=== PATIENT | female | born 1955 | race Hispanic/Latino ===

== ENCOUNTER 2017-08-03 22:23 | Emergency (ER) | payer MEDICARE ==
[2017-08-03] MEDS ORDERED: Sodium Chloride 0.9% 1,000 ML IV STA (22:36)
[2017-08-03 22:38] VITALS: BP 144/79; PULSE 65; RESP 16; TEMP 97.9; O2SAT 100; BMI 37.9
--- NOTE | 2017-08-03 23:19 | ED PDOC ---
HPI: Abdomen Time Seen by Provider: 08/03/17 22:33 Chief Complaint (Nursing): Abdominal Pain Chief Complaint (Provider): Abdominal Pain History Per: Patient History/Exam Limitations: no limitations Onset/Duration Of Symptoms: Days (x 6days) Current Symptoms Are (Timing): Still Present Additional Complaint(s): 62 y/o female with past medical history of kidney stones present to the ED complaining of acute left lower quadrant pain associated with nausea and vomiting x 6 days. The pain is sharp and stabbing and radiates to the back. Denies any further medical complaints. PMD:Carlos Sanchez MD Past Medical History Reviewed: Historical Data, Nursing Documentation, Vital Signs Vital Signs: Last Vital Signs Temp 97.9 F 08/03/17 22:28 Pulse 65 08/03/17 22:28 Resp 16 08/03/17 22:28 BP 144/79 08/03/17 22:28 Pulse Ox 100 08/04/17 00:37 - Medical History PMH: Depression, GERD Other PMH: Kidney Stones - Surgical History Surgical History: Appendectomy, Cholecystectomy Other surgeries: Hysterectomy - Family History Family History: States: Unknown Family Hx - Social History Current smoker - smoking cessation education provided: Yes (pack and a half a day) Alcohol: None Drugs: Denies - Home Medications Home Medications: Ambulatory Orders Medication Instructions Recorded Alprazolam [Xanax] 1 mg PO PRN PRN 12/13/14 Lamotrigine [Lamotrigine] 200 mg PO DAILY 12/13/14 Loperamide Hydrochloride 4 mg PO DAILY 12/13/14 [Loperamide] Ondansetron ODT [Zofran ODT] 4 mg PO TID #10 odt 12/13/14 Patient Own Med [Patient Own Med] 5 ml PO PRN PRN 12/13/14 Sertraline [Zoloft] 100 mg PO DAILY 12/13/14 traZODone [Desyrel] 150 mg PO QPM 12/13/14 Nitrofurantoin Macrocrystals 100 mg PO BID #14 cap 08/04/17 [Macrobid] Ondansetron ODT [Zofran ODT] 4 mg PO Q6 PRN #16 odt 08/04/17 Tamsulosin [Flomax] 0.4 mg PO DAILY #10 cap 08/04/17 oxyCODONE/Acetaminophen 1/2TAB 1 tab PO Q6 PRN #12 tab 08/04/17 [Percocet 5-325 mg HALF TAB] - Allergies Allergies/Adverse Reactions: Allergies Allergy/AdvReac Type Severity Reaction Status Date / Time codeine Allergy DIZZINESS Verified 08/03/17 22:27 Penicillins Allergy RASH Verified 08/03/17 22:26 Sulfa (Sulfonamide Allergy ITCHING Verified 08/03/17 22:27 Antibiotics) Review of Systems ROS Statement: Except As Marked, All Systems Reviewed And Found Negative (As per HPI, otherwise negative) Gastrointestinal: Positive for: Nausea, Vomiting, Abdominal Pain Physical Exam - Reviewed Nursing Documentation Reviewed: Yes Vital Signs Reviewed: Yes - Physical Exam Appears: Positive for: Uncomfortable Head Exam: Positive for: ATRAUMATIC, NORMAL INSPECTION, NORMOCEPHALIC Skin: Positive for: Normal Color, Warm, Dry Eye Exam: Positive for: Normal appearance, EOMI, PERRL ENT: Positive for: Normal ENT Inspection Neck: Positive for: Normal, Painless ROM, Supple Cardiovascular/Chest: Positive for: Regular Rate, Rhythm. Negative for: Murmur Respiratory: Positive for: Normal Breath Sounds. Negative for: Accessory Muscle Use, Respiratory Distress Gastrointestinal/Abdominal: Positive for: Normal Exam, Bowel Sounds, Soft. Negative for: Tenderness Back: Positive for: Normal Inspection Extremity: Positive for: Normal ROM Neurologic/Psych: Positive for: Alert, Oriented (x3) - Laboratory Results Result Diagrams: 08/03/17 23:10 08/03/17 23:10 - ECG O2 Sat by Pulse Oximetry: 100 (RA) Pulse Ox Interpretation: Normal Medical Decision Making Medical Decision Making: Time: 22:36 Initial Impression: 62y/o female with left lower quadrant pain in setting of known kidney stones Plan: Abdomen & pelvis w/o PO or IV contrast CMP Lipase Urine dipstick CBC w/ diff Toradol 30mg IV Sodium chloride 1L IV Ondansetron 4mg IV Heplock insertion Urinalysis Reevaluation Time: 00:00 Abdomen/Pelvis CT FINDINGS: Lower thorax: No acute findings. ABDOMEN: Liver: Unremarkable. Gallbladder and bile ducts: Cholecystectomy. No ductal dilation. Pancreas: Unremarkable. No ductal dilation. Spleen: Unremarkable. No splenomegaly. Adrenals: Unremarkable. No mass. Kidneys and ureters: Right kidney is unremarkable. Mild to moderate left hydronephrosis. Hypodensity measuring 2 CM in a anterior, mid pole renal cortex, most likely a cyst. 1 mm calculus at left ureterovesical junction. Coronal image #84. Stomach and bowel: Unremarkable. No obstruction. Appendix: No findings to suggest acute appendicitis. PELVIS: Bladder: Unremarkable. No stones. Reproductive: Hysterectomy. ABDOMEN and PELVIS: Intraperitoneal space: Unremarkable. No free air. No significant fluid collection. Bones/joints: Diffuse spinal degenerative changes. No acute fracture. No dislocation. Soft tissues: Unremarkable. Vasculature: Atherosclerotic vascular disease. No abdominal aortic aneurysm. Lymph nodes: Unremarkable. No enlarged lymph nodes. IMPRESSION: 1. 1 mm left UVJ calculus with [id number] left hydronephrosis. 2. Remainder of findings as above. Time: 01:15 Upon provider reevaluation patient is feeling better, is medically stable, and requires no further treatment in the ED at this time. Patient will be discharged home with Rx for Macrobid 100ml PO, Zofran 4mg PO, Percocet 5-325mg half tab, Flomax 0.4mg PO. No clinically significant abnormalities were observed with the exception of urinalysis which is indicative of possible UTI. Urologist referral was provided for further evaluation. Clinical Impression: UTI, Ureteral calculus Scribe Attestation: Documented by Avtar Elliott acting as a scribe for Fredy Lamar MD. Scribe Attestation: All medical record entries made by the Scribe were at my direction and personally dictated by me. I have reviewed the chart and agree that the record accurately reflects my personal performance of the history, physical exam, medical decision making, and the department course for this patient. I have also personally directed, reviewed, and agree with the discharge instructions and disposition. Disposition - Clinical Impression Clinical Impression: Ureteral calculus - Disposition Referrals: Aracelis Jones MD [Medical Doctor] - Disposition: Routine/Home Disposition Time: 01:15 Condition: STABLE Prescriptions: Nitrofurantoin Macrocrystals [Macrobid] 100 mg PO BID #14 cap Ondansetron ODT [Zofran ODT] 4 mg PO Q6 PRN #16 odt PRN Reason: Nausea/Vomiting oxyCODONE/Acetaminophen 1/2TAB [Percocet 5-325 mg HALF TAB] 1 tab PO Q6 PRN #12 tab PRN Reason: flank/abd pain Tamsulosin [Flomax] 0.4 mg PO DAILY #10 cap Instructions: Ureteral Stones (ED) Forms: [employer] (Spanish)
--- NOTE | 2017-08-04 | CT ---
EXAM: CT Abdomen and Pelvis Without Intravenous Contrast CLINICAL HISTORY: 62 years old, female; Pain; Abdominal pain; Flank; Left; Prior surgery; Surgery date: 6+ months; Surgery type: Appendectomy. Cholecystectomy. Hysterectomy; Additional info: Renal colic TECHNIQUE: Axial computed tomography images of the abdomen and pelvis without intravenous contrast. All CT scans at this facility use one or more dose reduction techniques, viz.: automated exposure control; ma/kV adjustment per patient size (including targeted exams where dose is matched to indication; i.e. head); or iterative reconstruction technique. Coronal and sagittal reformatted images were created and reviewed. COMPARISON: CT ABD AND PELV W/CONTRAST 2013-06-17 20:00 FINDINGS: Lower thorax: No acute findings. ABDOMEN: Liver: Unremarkable. Gallbladder and bile ducts: Cholecystectomy. No ductal dilation. Pancreas: Unremarkable. No ductal dilation. Spleen: Unremarkable. No splenomegaly. Adrenals: Unremarkable. No mass. Kidneys and ureters: Right kidney is unremarkable. Mild to moderate left hydronephrosis. Hypodensity measuring 2 CM in a anterior, mid pole renal cortex, most likely a cyst. 1 mm calculus at left ureterovesical junction. Coronal image #84. Stomach and bowel: Unremarkable. No obstruction. Appendix: No findings to suggest acute appendicitis. PELVIS: Bladder: Unremarkable. No stones. Reproductive: Hysterectomy. ABDOMEN and PELVIS: Intraperitoneal space: Unremarkable. No free air. No significant fluid collection. Bones/joints: Diffuse spinal degenerative changes. No acute fracture. No dislocation. Soft tissues: Unremarkable. Vasculature: Atherosclerotic vascular disease. No abdominal aortic aneurysm. Lymph nodes: Unremarkable. No enlarged lymph nodes. IMPRESSION: 1. 1 mm left UVJ calculus with [id number] left hydronephrosis. 2. Remainder of findings as above.
[2017-08-04 00:46] LABS: BASO # 0.1 K/uL (0.0-0.2); BASO % 1.4 % (0.0-2.0); EOS % 0.2 % (0.0-4.0); HEMATOCRIT 44.1 % (34.0-47.0); LYMPH # 1.7 K/uL (1.0-4.3); LYMPH % 18.6 % (20.0-40.0); MEAN CORPUSCULAR HEMOGLOBIN 30.7 pg (27.0-31.0); MEAN CORPUSCULAR HGB CONC 32.7 g/dL (33.0-37.0); MEAN PLATELET VOLUME 9.6 fl (7.2-11.7); MONO # 0.3 K/uL (0.0-0.8); MONO % 3.8 % (0.0-10.0); RED CELL DISTRIBUTION WIDTH 13.4 % (11.5-14.5); WHITE BLOOD COUNT 9.2 K/uL (4.8-10.8)
[2017-08-04 00:50] LABS: RBC URINE 4396 /hpf (0-3); URINE BACTERIA OCC (<OCC); URINE BILIRUBIN NEGATIVE (NEGATIVE); URINE BLOOD LARGE (NEGATIVE); URINE COLOR AMBER (YELLOW); URINE GLUCOSE (UA) NEG (Normal); URINE KETONE NEGATIVE (NEGATIVE); URINE LEUKOCYTE ESTERASE TRACE Leu/uL (Negative); URINE PROTEIN 100 mg/dL (NEGATIVE); URINE UROBILINOGEN 0.2-1.0 mg/dL (0.2-1.0); WBC CLUMPS MANY /hpf; WBC URINE 249 /hpf (0-5)
[2017-08-04 00:58] LABS: ALB/GLOB RATIO 1.2 (1.0-2.1); ALKALINE PHOSPHATASE 84 U/L (38-126); ALT/SGPT 33 U/L (9-52); AST/SGOT 21 U/L (14-36); BILIRUBIN,TOTAL 0.5 mg/dl (0.2-1.3); BLOOD UREA NITROGEN 15 mg/dl (7-17); CALCIUM 9.1 mg/dL (8.4-10.2); CARBON DIOXIDE 28 mmol/L (22-30); CHLORIDE 108 mmol/L (98-107); GFR AFRICAN-AMERICAN > 60; GLUCOSE,RANDOM 130 mg/dL (65-105); LIPASE 45 U/L (23-300); POTASSIUM 3.9 MMOL/L (3.6-5.0); SODIUM 145 mmol/l (132-148); TOTAL PROTEIN 7.7 G/DL (6.3-8.2)
== END 2017-08-04 01:20 | disposition home or self-care (01) ==
LOC: H.ER 22:23
DX: N20.1 Calculus of ureter (principal); F32.9 Major depressive disorder, single episode, unspecified; K21.9 Gastro-esophageal reflux disease without esophagitis; Z88.0 Allergy status to penicillin; Z90.49 Acquired absence of other specified parts of digestive tract; Z90.710 Acquired absence of both cervix and uterus
CPT/HCPCS: 74176; 80053; 81003; 83690; 85025; 96360; 96374; 99283; J1885; J2270; J2405; J7040

== ENCOUNTER 2018-09-28 15:45 | Emergency (ER) | payer MEDICARE ==
[2018-09-28 15:46] VITALS: BMI 37.9
[2018-09-28 15:52] VITALS: BP 139/83; PULSE 76; RESP 18; TEMP 98; O2SAT 98
[2018-09-28] MEDS ORDERED: Tdap Vaccine 0.5 ml Vial (10-64 yrs) IM ONE ×2 (15:52→16:27)
[2018-09-28] MEDS ORDERED: Lidocaine 2% w Epi 1:100,000 Inj IJ ONE ×2 (16:03→16:09)
--- NOTE | 2018-09-28 16:11 | ED PDOC ---
HPI: Trauma/Fall - HPI Time Seen by Provider: 09/28/18 15:58 Chief Complaint (Nursing): Trauma Chief Complaint (Provider): Trauma History Per: Patient History/Exam Limitations: no limitations Onset/Duration Of Symptoms: Days Additional Complaint(s): 63 y/o female presents to the ED for evaluation of a head injury s/p fall, onset prior to arrival. Patient tripped over a curb and fell sustaining a laceration to the front of her head. Unclear loss of consciousness observed by onlookers. Patient denies any loss of consciousness and any other injuries. Patient is not currently on any blood thinners. PMD: Killian Hodges - Fall Fall:Prior To Injury: Tripped Past Medical History Reviewed: Historical Data, Nursing Documentation, Vital Signs Vital Signs: Last Vital Signs Temp 98 F 09/28/18 15:50 Pulse 76 09/28/18 15:50 Resp 18 09/28/18 15:50 BP 139/83 09/28/18 15:50 Pulse Ox 98 09/28/18 15:50 - Medical History PMH: Depression, GERD, Kidney Stones, Chronic Kidney Disease - Surgical History Surgical History: Appendectomy, Cholecystectomy - Family History Family History: States: Unknown Family Hx - Home Medications Home Medications: Ambulatory Orders Medication Instructions Recorded Alprazolam [Xanax] 1 mg PO PRN PRN 12/13/14 Lamotrigine 200 mg PO DAILY 12/13/14 Loperamide Hydrochloride 4 mg PO DAILY 12/13/14 [Loperamide] Ondansetron ODT [Zofran ODT] 4 mg PO TID #10 odt 12/13/14 Patient Own Med 5 ml PO PRN PRN 12/13/14 RX: traZODone [Desyrel] 150 mg PO QPM 12/13/14 Sertraline [Zoloft] 100 mg PO DAILY 12/13/14 Nitrofurantoin Macrocrystals 100 mg PO BID #14 cap 08/04/17 [Macrobid] Ondansetron ODT [Zofran ODT] 4 mg PO Q6 PRN #16 odt 08/04/17 Tamsulosin [Flomax] 0.4 mg PO DAILY #10 cap 08/04/17 oxyCODONE/Acetaminophen 1/2TAB 1 tab PO Q6 PRN #12 tab 08/04/17 [Percocet 5-325 mg HALF TAB] - Allergies Allergies/Adverse Reactions: Allergies Allergy/AdvReac Type Severity Reaction Status Date / Time codeine Allergy DIZZINESS Verified 08/03/17 22:27 Penicillins Allergy RASH Verified 08/03/17 22:26 Sulfa (Sulfonamide Allergy ITCHING Verified 08/03/17 22:27 Antibiotics) Review of Systems ROS Statement: Except As Marked, All Systems Reviewed And Found Negative Musculoskeletal: Positive for: Other (Head injury s/p fall) Physical Exam - Reviewed Nursing Documentation Reviewed: Yes Vital Signs Reviewed: Yes - Physical Exam Appears: Positive for: No Acute Distress Head Exam: Negative for: NORMAL INSPECTION (1 cm laceration next to a 4 mm laceration by the left frontal region of her forehead. Tenderness to palpation of the left side of face) Neck: Positive for: Normal (Non-tender neck) - ECG O2 Sat by Pulse Oximetry: 98 (RA) Pulse Ox Interpretation: Normal Medical Decision Making Medical Decision Making: Time: 1603 Plan: -- CT Head w/o Contrast -- CT Orbits/Facial w/o Contrast -- Adacel 0.5 ml IM -- Motrin 600 mg PO -- Tylenol 975 mg PO -- Lidocaine/Epinephrine 1 ml IJ Time: 1704 CT HEAD FINDINGS: HEMORRHAGE: No intracranial hemorrhage. BRAIN: No mass effect or edema. No atrophy or chronic microvascular ischemic changes. VENTRICLES: Unremarkable. No hydrocephalus. CALVARIUM: Unremarkable. PARANASAL SINUSES: Unremarkable as visualized. No significant inflammatory changes. MASTOID AIR CELLS: Unremarkable as visualized. No inflammatory changes. OTHER FINDINGS: Mild left frontal scalp laceration. IMPRESSION: Left frontal scalp laceration. No calvarial fracture. No acute intracranial pathology. Time: 1717 CT MAXILLOFACIAL FINDINGS: RIGHT ORBIT: RIGHT BONY ORBIT: Normal. RIGHT INTRAORBITAL STRUCTURES: Globe: Normal. Extraocular muscles: Normal. Post septal space: Normal. Optic Nerve: Normal. Lacrimal Apparatus: Normal. RIGHT PRESEPTAL SOFT TISSUES: Normal. LEFT ORBIT: LEFT BONY ORBIT: Normal. LEFT INTRAORBITAL STRUCTURES: Globe: Normal. Extraocular muscles: Normal. Post septal space: Normal Optic Nerve: Normal. . Lacrimal Apparatus: Normal. LEFT PRESEPTAL SOFT TISSUES: Normal. OTHER: Left frontal scalp laceration. IMPRESSION: Left frontal scalp laceration. No facial bone fracture. Scribe Attestation: Documented by Radha Arenas, acting as a scribe Dieter Elliott PA-C. Provider Scribe Attestation: All medical record entries made by the Scribe were at my direction and personally dictated by me. I have reviewed the chart and agree that the record accurately reflects my personal performance of the history, physical exam, medical decision making, and the department course for this patient. I have also personally directed, reviewed, and agree with the discharge instructions and disposition. Disposition - Clinical Impression Clinical Impression: Head injury, Facial laceration - Patient ED Disposition Is Patient to be Admitted: No - Disposition Disposition: Routine/Home Disposition Time: 17:30 Condition: FAIR Additional Instructions: RETURN IN 5 DAYS FOR REMOVAL OF SUTURES Instructions: Laceration Repair, Closed Head Injury (DC) Procedure: Wound Repair - Time Performed Time Performed: 18:41 - Time Out Time Out: Site verified - Consent Obtained Consent obtained: Verbal - Performed by Performed by: Mid-level Provider - Indications Indication(s):: Laceration - Location Location:: Left, Face Shape:: Stellate Dimensions Length cm: 1.25cm Depth:: Epidermis - Anesthetic Technique Anesthetic Technique: Regional block Local/Regional Anesthetic:: Lidocaine 2% w/epi - Irrigated Irrigated with ml of normal saline: 150ml - Complexity Complexity:: Simple (one layer) - Wound repair method Sutures:: # (four), Size (6-0), Type (nylon), Technique (interrupted)
--- NOTE | 2018-09-28 17:08 | CT ---
Date of service: 09/28/2018 PROCEDURE: CT HEAD WITHOUT CONTRAST. HISTORY: HEAD INJURY COMPARISON: None available. TECHNIQUE: Axial computed tomography images were obtained through the head/brain without intravenous contrast. Radiation dose: Total exam DLP = 792.57 mGy-cm. This CT exam was performed using one or more of the following dose reduction techniques: Automated exposure control, adjustment of the mA and/or kV according to patient size, and/or use of iterative reconstruction technique. FINDINGS: HEMORRHAGE: No intracranial hemorrhage. BRAIN: No mass effect or edema. No atrophy or chronic microvascular ischemic changes. VENTRICLES: Unremarkable. No hydrocephalus. CALVARIUM: Unremarkable. PARANASAL SINUSES: Unremarkable as visualized. No significant inflammatory changes. MASTOID AIR CELLS: Unremarkable as visualized. No inflammatory changes. OTHER FINDINGS: Mild left frontal scalp laceration. IMPRESSION: Left frontal scalp laceration. No calvarial fracture. No acute intracranial pathology.
--- NOTE | 2018-09-28 17:21 | CT ---
Date of service: 09/28/2018 PROCEDURE: CT ORBITS WITHOUT CONTRAST. HISTORY: R/O FX COMPARISON: None available. TECHNIQUE: Axial CT images of the orbits were obtained. Coronal and sagittal reformats were generated. Radiation dose: Total exam DLP = 836.12 mGy-cm. This CT exam was performed using one or more of the following dose reduction techniques: Automated exposure control, adjustment of the mA and/or kV according to patient size, and/or use of iterative reconstruction technique. FINDINGS: RIGHT ORBIT: RIGHT BONY ORBIT: Normal. RIGHT INTRAORBITAL STRUCTURES: Globe: Normal. Extraocular muscles: Normal. Post septal space: Normal. Optic Nerve: Normal. Lacrimal Apparatus: Normal. RIGHT PRESEPTAL SOFT TISSUES: Normal. LEFT ORBIT: LEFT BONY ORBIT: Normal. LEFT INTRAORBITAL STRUCTURES: Globe: Normal. Extraocular muscles: Normal. Post septal space: Normal Optic Nerve: Normal. . Lacrimal Apparatus: Normal. LEFT PRESEPTAL SOFT TISSUES: Normal. OTHER: Left frontal scalp laceration. IMPRESSION: Left frontal scalp laceration. No facial bone fracture.
== END 2018-09-28 17:32 | disposition home or self-care (01) ==
LOC: H.ER 15:45
DX: S01.81XA Laceration without foreign body of other part of head, initial encounter (principal); W01.0XXA Fall on same level from slipping, tripping and stumbling without subsequent striking against object, initial encounter; S09.90XA Unspecified injury of head, initial encounter; W19.XXXA Unspecified fall, initial encounter; Y92.89 Other specified places as the place of occurrence of the external cause; F32.9 Major depressive disorder, single episode, unspecified; Z88.0 Allergy status to penicillin; Z88.2 Allergy status to sulfonamides

== ENCOUNTER 2018-10-03 14:34 | Emergency (ER) | payer MEDICARE ==
[2018-10-03 14:34] VITALS: BMI 37.9
[2018-10-03 14:41] VITALS: BP 97/69; PULSE 63; RESP 18; TEMP 97.1; O2SAT 99
--- NOTE | 2018-10-03 15:30 | ED PDOC ---
HPI: Wound Care - HPI Time Seen by Provider: 10/03/18 15:23 Chief Complaint (Nursing): Abnormal Skin Integrity Chief Complaint (Provider): Suture Removal History Per: Patient Exam Limitations: no limitations Onset/Duration Of Symptoms: Days (x5) Current Symptoms Are (Timing): Better Additional Complaint(s): 63 year old female presents to the ED for suture removal. Patient was seen here on 09/28/2018 s/p a slip and fall where she had four 6:0 nylon sutures placed to her left forehead. Denies any complications, fever, and chills. PMD: Carlos Sanchez Past Medical History Reviewed: Historical Data, Nursing Documentation, Vital Signs Vital Signs: Last Vital Signs Temp 97.1 F L 10/03/18 14:38 Pulse 63 10/03/18 14:38 Resp 18 10/03/18 14:38 BP 97/69 L 10/03/18 14:38 Pulse Ox 99 10/03/18 14:38 - Medical History PMH: Depression, GERD, Kidney Stones, Chronic Kidney Disease - Surgical History Surgical History: Appendectomy, Cholecystectomy - Family History Family History: States: Unknown Family Hx - Home Medications Home Medications: Ambulatory Orders Medication Instructions Recorded Alprazolam [Xanax] 1 mg PO PRN PRN 12/13/14 Lamotrigine 200 mg PO DAILY 12/13/14 Loperamide Hydrochloride 4 mg PO DAILY 12/13/14 [Loperamide] Ondansetron ODT [Zofran ODT] 4 mg PO TID #10 odt 12/13/14 Patient Own Med 5 ml PO PRN PRN 12/13/14 Sertraline [Zoloft] 100 mg PO DAILY 12/13/14 traZODone [Desyrel] 150 mg PO QPM 12/13/14 Nitrofurantoin Macrocrystals 100 mg PO BID #14 cap 08/04/17 [Macrobid] Ondansetron ODT [Zofran ODT] 4 mg PO Q6 PRN #16 odt 08/04/17 Tamsulosin [Flomax] 0.4 mg PO DAILY #10 cap 08/04/17 oxyCODONE/Acetaminophen 1/2TAB 1 tab PO Q6 PRN #12 tab 08/04/17 [Percocet 5-325 mg HALF TAB] - Allergies Allergies/Adverse Reactions: Allergies Allergy/AdvReac Type Severity Reaction Status Date / Time codeine Allergy DIZZINESS Verified 08/03/17 22:27 Penicillins Allergy RASH Verified 08/03/17 22:26 Sulfa (Sulfonamide Allergy ITCHING Verified 08/03/17 22:27 Antibiotics) Review of Systems ROS Statement: Except As Marked, All Systems Reviewed And Found Negative Constitutional: Negative for: Fever, Chills Skin: Positive for: Other ([address] above left eye to a well healing wound) Physical Exam - Reviewed Nursing Documentation Reviewed: Yes Vital Signs Reviewed: Yes - Physical Exam Appears: Positive for: No Acute Distress Head Exam: Positive for: NORMAL INSPECTION (well healeing wound with 4 6:0 nylon sutures just above left eye, (-) erythema, (-) signs of infection, (-) drainage, (-) warmth) Skin: Positive for: Normal Color, Warm Cardiovascular/Chest: Positive for: Regular Rate, Rhythm Respiratory: Positive for: Normal Breath Sounds. Negative for: Respiratory Distress Neurologic/Psych: Negative for: Motor/Sensory Deficits - ECG O2 Sat by Pulse Oximetry: 99 (RA) Pulse Ox Interpretation: Normal Medical Decision Making Medical Decision Making: Time: 1529 Initial Impression: suture removal Initial Plan: --Sutures removed without difficulty. Return parameters discussed and patient is to be discharged. Scribe Attestation: Documented by Iqra Spence, acting as a scribe for Orlin Samuel PA-C. Provider Scribe Attestation: All medical record entries made by the Scribe were at my direction and personally dictated by me. I have reviewed the chart and agree that the record accurately reflects my personal performance of the history, physical exam, medical decision making, and the department course for this patient. I have also personally directed, reviewed, and agree with the discharge instructions and disposition. Disposition - Clinical Impression Clinical Impression: Encounter for removal of sutures - Patient ED Disposition Is Patient to be Admitted: No - Disposition Disposition: Routine/Home Disposition Time: 15:38 Condition: STABLE Instructions: Stitches Removal Forms: [employer] (Urdu)
== END 2018-10-03 15:44 | disposition home or self-care (01) ==
LOC: H.ER 14:34
DX: Z48.02 Encounter for removal of sutures (principal)

== ENCOUNTER 2018-10-14 16:00 | Observation (INO) | payer MEDICARE ==
[2018-10-14 16:00] VITALS: BMI 37.9
[2018-10-14 17:58] LABS: BASO % 0.7 % (0.0-2.0); EOS % 0.3 % (0.0-4.0); HEMOGLOBIN 13.6 g/dL (12.0-16.0); LYMPH # 2.2 K/uL (1.0-4.3); LYMPH % 32.7 % (20.0-40.0); MEAN CELL VOLUME 91.6 fl (81.0-99.0); MEAN CORPUSCULAR HEMOGLOBIN 30.2 pg (27.0-31.0); MEAN PLATELET VOLUME 8.4 fl (7.2-11.7); MONO # 0.5 K/uL (0.0-0.8); MONO % 7.2 % (0.0-10.0); NEUT % 59.1 % (50.0-75.0); RBC 4.5 Mil/uL (3.80-5.20); WHITE BLOOD COUNT 6.7 K/uL (4.8-10.8)
[2018-10-14 18:04] LABS: INR 1.1; PROTHROMBIN TIME 12.3 Seconds (9.8-13.1)
[2018-10-14 18:07] LABS: PARTIAL THROMBOPLASTIN TIME 34.3 Seconds (25.6-37.1)
[2018-10-14 18:08] LABS: ALB/GLOB RATIO 1.1 (1.0-2.1); ALBUMIN 3.9 g/dL (3.5-5.0); ALT/SGPT 19 U/L (9-52); AST/SGOT 21 U/L (14-36); BLOOD UREA NITROGEN 13 mg/dl (7-17); CALCIUM 9.2 mg/dL (8.4-10.2); GFR NON-AFRICAN AMERICAN > 60
--- NOTE | 2018-10-14 19:17 | ED PDOC ---
Syncope/Near Syncope/Dizziness Time Seen by Provider: 10/14/18 16:14 Chief Complaint (Nursing): Syncope Chief Complaint (Provider): Syncope History Per: Patient History/Exam Limitations: no limitations Onset/Duration Of Symptoms: Days Current Symptoms Are (Timing): Still Present Additional Complaint(s): 63 y/o female with a PMHx of Anxiety and Depression presents to the ED for evaluation of syncope since 6 PM yesterday. Patient states she had a moment where she feeling lightheaded and waking up lying on the floor. Patient notes of feeling pain to her right knee at that time. Patient reports that just prior to arrival, she was unable to walk at all thus prompting today's visit. Patient reports of having a similar fall almost two weeks ago on 10/04/2018 where she felt lightheaded and woke up on the ground. At that time, patient reports of having a head injury and laceration and came here for further evaluation. Patient currently denies chest pain, shortness of breath, headache, focal weakness and difficulty with speech. PMD: Carlos Sanchez Past Medical History Reviewed: Historical Data, Nursing Documentation, Vital Signs Vital Signs: Last Vital Signs Temp 97.9 F 10/14/18 16:02 Pulse 88 10/14/18 16:02 Resp 22 10/14/18 16:02 BP 90/62 L 10/14/18 16:02 Pulse Ox 99 10/14/18 16:02 - Medical History PMH: Depression, GERD, Kidney Stones, Chronic Kidney Disease - Surgical History Surgical History: Appendectomy, Cholecystectomy Other surgeries: hysterectomy - Family History Family History: States: Stroke, Hypertension - Social History Current smoker - smoking cessation education provided: Yes - Home Medications Home Medications: Ambulatory Orders Medication Instructions Recorded Alprazolam [Xanax] 1 mg PO PRN PRN 12/13/14 Lamotrigine 200 mg PO DAILY 12/13/14 Loperamide Hydrochloride 4 mg PO DAILY 12/13/14 [Loperamide] Ondansetron ODT [Zofran ODT] 4 mg PO TID #10 odt 12/13/14 Patient Own Med 5 ml PO PRN PRN 12/13/14 Sertraline [Zoloft] 100 mg PO DAILY 12/13/14 traZODone [Desyrel] 150 mg PO QPM 12/13/14 Nitrofurantoin Macrocrystals 100 mg PO BID #14 cap 08/04/17 [Macrobid] Ondansetron ODT [Zofran ODT] 4 mg PO Q6 PRN #16 odt 08/04/17 Tamsulosin [Flomax] 0.4 mg PO DAILY #10 cap 08/04/17 oxyCODONE/Acetaminophen 1/2TAB 1 tab PO Q6 PRN #12 tab 08/04/17 [Percocet 5-325 mg HALF TAB] - Allergies Allergies/Adverse Reactions: Allergies Allergy/AdvReac Type Severity Reaction Status Date / Time codeine Allergy DIZZINESS Verified 08/03/17 22:27 Penicillins Allergy RASH Verified 08/03/17 22:26 Sulfa (Sulfonamide Allergy ITCHING Verified 08/03/17 22:27 Antibiotics) Review of Systems ROS Statement: Except As Marked, All Systems Reviewed And Found Negative (as per HPI) Musculoskeletal: Positive for: Leg Pain (RIGHT KNEE PAIN) Neurological: Positive for: Other (SYNCOPE, LIGHTHEADEDNESS AT ONSET) Physical Exam - Reviewed Nursing Documentation Reviewed: Yes Vital Signs Reviewed: Yes - Physical Exam Appears: Positive for: In Acute Distress (mild, painful) Head Exam: Positive for: ATRAUMATIC, NORMOCEPHALIC Skin: Positive for: Warm, Dry Eye Exam: Positive for: EOMI, PERRL ENT: Negative for: Pharyngeal Erythema, Tonsillar Exudate Neck: Positive for: Painless ROM, Supple Cardiovascular/Chest: Positive for: Regular Rate, Rhythm. Negative for: Murmur Respiratory: Positive for: Normal Breath Sounds. Negative for: Respiratory Distress Pulses-Dorsalis Pedis (L): 2+ Pulses-Dorsalis Pedis (R): 2+ Gastrointestinal/Abdominal: Positive for: Soft. Negative for: Tenderness Back: Positive for: Normal Inspection. Negative for: Decreased ROM Extremity: Positive for: Tenderness (tenderness to palpation of the anterior right knee). Negative for: Normal ROM (Limited ROM secondary to pain), Deformity (gross), Other (edema) Lymphatic: Negative for: Adenopathy Neurologic/Psych: Positive for: Alert, Oriented (x3), Other (normal speech). Negative for: Motor/Sensory Deficits - Laboratory Results Result Diagrams: 10/14/18 17:45 10/14/18 17:45 Lab Results: PT 12.3 Seconds (9.8-13.1) 10/14/18 17:45 INR 1.1 10/14/18 17:45 APTT 34.3 Seconds (25.6-37.1) 10/14/18 17:45 Troponin I < 0.0120 ng/mL (0.00-0.120) 10/14/18 17:45 Total Bilirubin 0.6 mg/dl (0.2-1.3) 10/14/18 17:45 AST 21 U/L (14-36) 10/14/18 17:45 ALT 19 U/L (9-52) 10/14/18 17:45 Alkaline Phosphatase 85 U/L (38-126) 10/14/18 17:45 Total Protein 7.4 G/DL (6.3-8.2) 10/14/18 17:45 Albumin 3.9 g/dL (3.5-5.0) 10/14/18 17:45 Globulin 3.5 gm/dL (2.2-3.9) 10/14/18 17:45 Albumin/Globulin Ratio 1.1 (1.0-2.1) 10/14/18 17:45 - ECG ECG Rhythm: Positive for: Normal ST Segment, Sinus Rhythm Interpretation Of Abn EKG: diffusely flattened T-Waves (compared to previous EKG in November 2015. ST Morphology Unchanged) Rate: 69 O2 Sat by Pulse Oximetry: 99 (RA) Pulse Ox Interpretation: Normal Medical Decision Making Medical Decision Making: Time: 1624 Impression: Syncope and right knee injury Plan: -- Patient needs to be hospitalized for unexplained recurrent syncopal episode -- Type and Screen -- EKG -- Alcohol Serum -- CMP -- Urine Drug Screen -- Magnesium -- Phosphorus -- Troponin I -- ED Urine Dipstick -- CBC with Differentials -- PTT -- Prothrombin Time -- CXR -- Knee 3 Views LT XR -- Glucose, POC -- Toradol 30 mg IVP -- Dobie Worker -- IV Insertion -- Femur Right XR -- Knee Right 2 Views XR Labs unremarkable DW Dr Munson Hospitalist admitting for PMD Dr Sanchez. Scribe Attestation: Documented by Radha Arenas, acting as a scribe for Whitney Sanabria MD. Provider Scribe Attestation: All medical record entries made by the Scribe were at my direction and personally dictated by me. I have reviewed the chart and agree that the record accurately reflects my personal performance of the history, physical exam, medical decision making, and the department course for this patient. I have also personally directed, reviewed, and agree with the discharge instructions and disposition. Disposition - Clinical Impression Clinical Impression: Syncope, Knee injury - Disposition Disposition Time: 18:00 Condition: FAIR - Pt Status Changed To: Hospital Disposition Of: Inpatient - Admit Certification Admit to Inpatient:: After my assessment, the patient will require hospitalization for at least two midnights. This is because of the severity of symptoms shown, intensity of services needed, and/or the medical risk in this pa tient being treated as an outpatient. - POA Present On Arrival: Falls Or Trauma
--- NOTE | 2018-10-14 19:22 | CP.PCM.HP ---
<Zayda Salomon - Last Filed: 10/15/18 05:19> History of Present Illness - History of Present Illness History of Present Illness: Pt is a 63 y/o female with hx of Anxiety, Depression, and Chronic smoker, presents to ED with complaints of left knee pain which during a fall after a sudden loss of consciousness last night. States she was walking down the stairs and on the last step, she blacked out. Next thing she remembers, she woke up on the floor and had right knee pain. Denies any prodomal symptoms (lightheadedness/dizziness,cp, sob, flushed, palpitations, n/v). When she woke up she was alert and oriented, denied confusion, denied headache or any other joint pain, denied urinary incontinence or lip biting. She states that she had a similar episode 2 weeks ago that occurred as [place] for which she struck her head and suffered a head laceration. She visited ED at this time and had laceration repaired. Head & Maxillofacial CT at that time were negative for any acute fractures. With regards to these 2 episodes, pt states that they were not mechanical falls but reports that she "blacks out." ROS: Denies recent illness, new medication, motor or sensory deficits, gait instability, visual or auditory deficits, or new headaches. PMD: Dr. Erickson PMHX: Depression, Diabetes, Bipolar Disorder, Cervical Ca-Resection and Radiation (Denies hx of Seizures,CVA, AR, or cardiac arrythmias) Medications: Xanax, Lamotrigine, Sertraline, Trazadone PSurgHx: Total Hysterectomy, Cholecystectomy FmHx: Denies Social: lives along in apartment, 40 pack year smoking hx, ETOH socially, denies IVDU Present on Admission - Present on Admission Any Indicators Present on Admission: No History of DVT/PE: No History of Uncontrolled Diabetes: No Urinary Catheter: No Decubitus Ulcer Present: No Past Patient History - Past Social History Smoking Status: Heavy Smoker > 10 Cigarettes Daily - PULMONARY Hx Respiratory Disorders: Yes - RENAL Hx Chronic Kidney Disease: Yes Hx Kidney Stones: Yes - GASTROINTESTINAL Hx Bowel Surgery: Yes - GENITOURINARY/GYNECOLOGICAL Hx Genitourinary Disorders: Yes Hx Cervical Cancer: Yes (with Radiation Tx) - PSYCHIATRIC Hx Depression: Yes - SURGICAL HISTORY Hx Appendectomy: Yes Hx Cholecystectomy: Yes - ANESTHESIA Hx Anesthesia: Yes Hx Anesthesia Reactions: No Hx Malignant Hyperthermia: No Meds Allergies/Adverse Reactions: Allergies Allergy/AdvReac Type Severity Reaction Status Date / Time codeine Allergy DIZZINESS Verified 08/03/17 22:27 Penicillins Allergy RASH Verified 08/03/17 22:26 Sulfa (Sulfonamide Allergy ITCHING Verified 08/03/17 22:27 Antibiotics) Physical Exam - Constitutional Appears: No Acute Distress - Head Exam Additional comments: Old laceration left forehead, well healed - Eye Exam Eye Exam: EOMI. absent: Nystagmus Pupil Exam: PERRL - ENT Exam ENT Exam: Mucous Membranes Moist - Neck Exam Neck exam: Positive for: Full Rom - Respiratory Exam Respiratory Exam: Clear to Auscultation Bilateral. absent: Rales, Wheezes - Cardiovascular Exam Cardiovascular Exam: REGULAR RHYTHM, +S1, +S2. absent: Systolic Murmur - GI/Abdominal Exam GI & Abdominal Exam: Normal Bowel Sounds, Soft. absent: Tenderness - Extremities Exam Extremities exam: Positive for: joint swelling (Right knee, mild effusion and tender, no warmth or erythema, full ROM), normal capillary refill, pedal pulses present. Negative for: calf tenderness, pedal edema - Neurological Exam Neurological exam: Alert, CN II-XII Intact, Oriented x3 - Psychiatric Exam Psychiatric exam: Normal Affect - Skin Skin Exam: Normal Color Results - Vital Signs Recent Vital Signs: Last Vital Signs Temp 97.9 F 10/14/18 16:02 Pulse 88 10/14/18 16:02 Resp 22 10/14/18 16:02 BP 90/62 L 10/14/18 16:02 Pulse Ox 99 10/14/18 19:21 - Labs Result Diagrams: 10/14/18 17:45 10/14/18 17:45 Labs: Laboratory Results - last 24 hr 10/14/18 10/14/18 10/14/18 16:06 17:45 17:45 WBC 6.7 RBC 4.50 Hgb 13.6 Hct 41.2 MCV 91.6 D MCH 30.2 MCHC 33.0 RDW 14.0 Plt Count 156 MPV 8.4 Neut % (Auto) 59.1 Lymph % (Auto) 32.7 [place] % (Auto) 7.2 Eos % (Auto) 0.3 Baso % (Auto) 0.7 Neut # (Auto) 4.0 Lymph # (Auto) 2.2 [place] # (Auto) 0.5 Eos # (Auto) 0.0 Baso # (Auto) 0.0 PT INR APTT Sodium 139 Potassium 4.0 Chloride 101 Carbon Dioxide 28 Anion Gap 14 BUN 13 Creatinine 0.8 Est GFR ( Amer) > 60 Est GFR (Non-Af Amer) > 60 POC Glucose (mg/dL) 108 Random Glucose 105 Calcium 9.2 Phosphorus 4.2 Magnesium 2.2 Total Bilirubin 0.6 AST 21 ALT 19 Alkaline Phosphatase 85 Troponin I < 0.0120 Total Protein 7.4 Albumin 3.9 Globulin 3.5 Albumin/Globulin Ratio 1.1 Alcohol, Quantitative < 10 Blood Type Antibody Screen BBK History Checked 10/14/18 10/14/18 17:45 17:45 WBC RBC Hgb Hct MCV MCH MCHC RDW Plt Count MPV Neut % (Auto) Lymph % (Auto) [place] % (Auto) Eos % (Auto) Baso % (Auto) Neut # (Auto) Lymph # (Auto) [place] # (Auto) Eos # (Auto) Baso # (Auto) PT 12.3 INR 1.1 APTT 34.3 Sodium Potassium Chloride Carbon Dioxide Anion Gap BUN Creatinine Est GFR ( Amer) Est GFR (Non-Af Amer) POC Glucose (mg/dL) Random Glucose Calcium Phosphorus Magnesium Total Bilirubin AST ALT Alkaline Phosphatase Troponin I Total Protein Albumin Globulin Albumin/Globulin Ratio Alcohol, Quantitative Blood Type A POSITIVE Antibody Screen Negative BBK History Checked No verified bt Assessment & Plan - Assessment and Plan (Free Text) Assessment: Pt is a 63 y/o female with hx of Anxiety, Depression, and Chronic smoker, presents to ED with complaints of left knee pain after 2 syncopal episodes in the last 2 weeks. #Syncope -Unknown etiology -Head and Orbit CT from 09/28, No acute fractures or intracranial pathology -EKG no ischemic changes, Troponin x1 negative -Labs wnl: CBC, CMP, Utox -Carotid US BL -Echo -Orthostatic Vital signs (BP noted to be 90/62 on presentation) -Telemetry monitoring #Knee Pain -F/u Knee and Femur Xray report -Pain management as ordered # Depression and Bipolar -resume home meds #Diet -Regular DVT ppx -Lovenox SC 40 daily Code Status discussed with patient. States she would like to be DNR only. <Arpit,Makenna K - Last Filed: 10/15/18 10:42> Results - Vital Signs Recent Vital Signs: Last Vital Signs Temp 98.3 F 10/15/18 07:56 Pulse 65 10/15/18 07:56 Resp 18 10/15/18 07:56 BP 111/67 10/15/18 07:56 Pulse Ox 93 L 10/15/18 07:56 - Labs Result Diagrams: 10/14/18 17:45 10/14/18 17:45 Labs: Laboratory Results - last 24 hr 10/14/18 10/14/18 10/14/18 16:06 17:45 17:45 WBC 6.7 RBC 4.50 Hgb 13.6 Hct 41.2 MCV 91.6 D MCH 30.2 MCHC 33.0 RDW 14.0 Plt Count 156 MPV 8.4 Neut % (Auto) 59.1 Lymph % (Auto) 32.7 [place] % (Auto) 7.2 Eos % (Auto) 0.3 Baso % (Auto) 0.7 Neut # (Auto) 4.0 Lymph # (Auto) 2.2 [place] # (Auto) 0.5 Eos # (Auto) 0.0 Baso # (Auto) 0.0 PT INR APTT Sodium 139 Potassium 4.0 Chloride 101 Carbon Dioxide 28 Anion Gap 14 BUN 13 Creatinine 0.8 Est GFR ( Amer) > 60 Est GFR (Non-Af Amer) > 60 POC Glucose (mg/dL) 108 Random Glucose 105 Calcium 9.2 Phosphorus 4.2 Magnesium 2.2 Total Bilirubin 0.6 AST 21 ALT 19 Alkaline Phosphatase 85 Troponin I < 0.0120 Total Protein 7.4 Albumin 3.9 Globulin 3.5 Albumin/Globulin Ratio 1.1 Alcohol, Quantitative < 10 Blood Type Antibody Screen BBK History Checked 10/14/18 10/14/18 17:45 17:45 WBC RBC Hgb Hct MCV MCH MCHC RDW Plt Count MPV Neut % (Auto) Lymph % (Auto) [place] % (Auto) Eos % (Auto) Baso % (Auto) Neut # (Auto) Lymph # (Auto) [place] # (Auto) Eos # (Auto) Baso # (Auto) PT 12.3 INR 1.1 APTT 34.3 Sodium Potassium Chloride Carbon Dioxide Anion Gap BUN Creatinine Est GFR ( Amer) Est GFR (Non-Af Amer) POC Glucose (mg/dL) Random Glucose Calcium Phosphorus Magnesium Total Bilirubin AST ALT Alkaline Phosphatase Troponin I Total Protein Albumin Globulin Albumin/Globulin Ratio Alcohol, Quantitative Blood Type A POSITIVE Antibody Screen Negative BBK History Checked No verified bt Attending/Attestation - Attestation I have personally seen and examined this patient.: Yes I have fully participated in the care of the patient.: Yes I have reviewed all pertinent clinical information: Yes Notes (Text): 10/15/18 10:41 agree with findings and plan as above
[2018-10-14] MEDS ORDERED: Sodium Chloride 0.9% 1,000 ML IV SCH (19:30)
[2018-10-15] MEDS ORDERED: Enoxaparin 30 mg Syringe SC SCH (09:00)
[2018-10-15] MEDS ORDERED: LAMOTRIGINE 200 MG PO SCH (09:00)
[2018-10-15] MEDS: Enoxaparin 40 mg Syringe SC SCH (09:08)
--- NOTE | 2018-10-15 11:01 | RAD ---
Date of service: 10/14/2018 PROCEDURE: Right Knee Radiographs. HISTORY: fall injury pain COMPARISON: None. FINDINGS: BONES: No acute fracture or destructive bony lesion identified. JOINTS: No subluxation or dislocation. Degenerative joint space narrowing is appreciated at the patellofemoral, medial and lateral femorotibial compartments compatible with moderate degenerative joint disease. JOINT EFFUSION: None. OTHER FINDINGS: Enthesophyte at the insertion of the quadriceps tendon, borderline at the proximal patellar tendon. IMPRESSION: Degenerative joint disease as per above. No acute fracture or dislocation right knee.
--- NOTE | 2018-10-15 11:02 | RAD ---
Date of service: 10/14/2018 PROCEDURE: RIGHT FEMUR RADIOGRAPHS HISTORY: fall injury pain COMPARISON: None available. TECHNIQUE: Frontal and lateral views right femur have been submitted for interpretation. FINDINGS: No acute fracture or dislocation is grossly seen related to the right femur. No destructive bony lesion identified. Local soft tissues appear diffusely unremarkable. Mild degenerative changes are seen at the right hip and knee joints. IMPRESSION: No acute fracture throughout the right femur or destructive bony lesion evident. Degenerative changes seen at the right knee and hip joints incidentally.
--- NOTE | 2018-10-15 11:04 | RAD ---
Date of service: 10/14/2018 HISTORY: syncope COMPARISON: Chest CT without contrast 03/22/2011. FINDINGS: LUNGS: No active pulmonary disease. PLEURA: No significant pleural effusion identified, no pneumothorax apparent. CARDIOVASCULAR: Calcific atherosclerotic changes are seen related to the thoracic aorta. Normal cardiac size. No pulmonary vascular congestion. OSSEOUS STRUCTURES: No significant abnormalities. VISUALIZED UPPER ABDOMEN: Normal. OTHER FINDINGS: None. IMPRESSION: No interval acute cardiopulmonary disease appreciated.
[2018-10-15] MEDS ORDERED: Perflutren Lipid Microsphere 1.5 ML SUS IV ONE (11:38)
--- NOTE | 2018-10-15 12:06 | CP.PCM.PN ---
<Koki Mckeon - Last Filed: 10/15/18 13:51> Subjective - Date & Time of Evaluation Date of Evaluation: 10/15/18 Time of Evaluation: 09:00 - Subjective Subjective: Pt is a 63 yo female with hx of Anxiety, Depression, and Chronic smoker, admitted to ED due to Syncope with subsequent R knee injury. Today patient states she feels tired only slept 4 hours. Reports persistent R knee pain is able to walk on the leg. Appetite goood. Denies fevers, chills, headache, blurry vision, weakness, numbness/tingling, facial droop, chest pain, SOB, N/V/D/C, or dysuria. Objective - Vital Signs/Intake and Output Vital Signs (last 24 hours): Temp Pulse Resp BP Pulse Ox 98.3 F 65 18 111/67 93 L 10/15/18 07:56 10/15/18 07:56 10/15/18 07:56 10/15/18 07:56 10/15/18 07:56 - Medications Medications: Current Medications Acetaminophen (Tylenol 325mg Tab) 650 mg PO Q6 PRN PRN Reason: Pain, Mild (1-3) Alprazolam (Xanax) 1 mg PO BID PRN PRN Reason: Anxiety Last Admin: 10/15/18 00:31 Dose: 1 mg Enoxaparin Sodium (Lovenox) 40 mg SC DAILY [facility]; Protocol Last Admin: 10/15/18 09:08 Dose: 40 mg Ketorolac Tromethamine (Toradol) 30 mg IVP Q6 PRN PRN Reason: Pain, moderate (4-7) Last Admin: 10/15/18 10:39 Dose: 30 mg Lamotrigine (Lamictal) 200 mg PO DAILY [facility] Last Admin: 10/15/18 09:07 Dose: 200 mg Sertraline HCl (Zoloft) 100 mg PO DAILY [facility] Last Admin: 10/15/18 09:10 Dose: 100 mg Trazodone HCl (Desyrel) 150 mg PO QPM [facility] - Labs Labs: 10/14/18 17:45 10/14/18 17:45 PT 12.3 Seconds (9.8-13.1) 10/14/18 17:45 INR 1.1 10/14/18 17:45 APTT 34.3 Seconds (25.6-37.1) 10/14/18 17:45 - Constitutional Appears: Non-toxic, No Acute Distress - Head Exam Head Exam: ATRAUMATIC, NORMAL INSPECTION, NORMOCEPHALIC Additional comments: Laceration on L forehead, healed - Eye Exam Eye Exam: EOMI, Normal appearance, PERRL Pupil Exam: PERRL - ENT Exam ENT Exam: Mucous Membranes Moist - Respiratory Exam Respiratory Exam: Clear to Ausculation Bilateral, NORMAL BREATHING PATTERN. absent: Rales, Rhonchi, Wheezes - Cardiovascular Exam Cardiovascular Exam: RRR, +S1, +S2 - GI/Abdominal Exam GI & Abdominal Exam: Soft, Normal Bowel Sounds. absent: Tenderness - Extremities Exam Extremities Exam: Full ROM, Tenderness (R knee). absent: Joint Swelling, Pedal Edema - Neurological Exam Neurological Exam: Alert, Awake, CN II-XII Intact, Oriented x3 Additional comments: Strength and sensation 5/5 B/L UE and LE Assessment and Plan - Assessment and Plan (Free Text) Assessment: Pt is a 63 y/o female with hx of Anxiety, Depression, and Chronic smoker, presents to ED with complaints of left knee pain after 2 syncopal episodes in the last 2 weeks. Syncope -Unknown etiology -Head and Orbit CT from 09/28, No acute fractures or intracranial pathology -EKG no ischemic changes, Troponin x1 negative -Labs wnl: CBC, CMP -Carotid and Vertebral US BL- F/u -F/u Echo, EEG, Orthostatics -Urine tox - F/u final -Neuro consulted- Dr. Pittman- reccs appreciated- F/u CTA Head and neck -Telemetry monitoring R Knee Pain -F/u Knee and Femur Xray report no acute fracture or dislocation, degenerative joint dz -Tylenol, Toradol PRN pain Depression and Bipolar -c/w home meds Diet -Regular DVT ppx -Lovenox SC 40 daily Code Status discussed with patient. States she would like to be DNR only. <Makenna Munson - Last Filed: 10/16/18 17:38> Objective - Vital Signs/Intake and Output Vital Signs (last 24 hours): Temp Pulse Resp BP Pulse Ox 97.6 F 65 18 127/85 93 L 10/16/18 12:03 10/16/18 12:03 10/16/18 12:03 10/16/18 12:03 10/16/18 12:03 - Labs Labs: 10/14/18 17:45 10/14/18 17:45 PT 12.3 Seconds (9.8-13.1) 10/14/18 17:45 INR 1.1 10/14/18 17:45 APTT 34.3 Seconds (25.6-37.1) 10/14/18 17:45 Attending/Attestation - Attestation I have personally seen and examined this patient.: Yes I have fully participated in the care of the patient.: Yes I have reviewed all pertinent clinical information, including history, physical exam and plan: Yes Notes (Text): 10/16/18 17:38 Agree with findings and plan as above.
--- NOTE | 2018-10-15 12:47 | CARD ---
APPROVED REPORT Date of service: 10/14/2018 EKG Measurement Heart [id number] <Conclusion> Normal sinus rhythm Left axis deviation Nonspecific T wave abnormality Abnormal ECG
--- NOTE | 2018-10-15 14:17 | CP.PCM.CON ---
History of Present Illness - History of Present Illness History of Present Illness: Neurology Consultation Note: Consult requested by Dr. Makenna Munson Mrs. Mckeon is a 63-year-old woman with a past medical history of Anxiety, Depression, and Chronic smoker, who had an episode of syncope while going down the stairs last night. She had a similar episode two weeks ago where she just "blacked out" and hit her head. This time, she injured her knee. She did not have and tongue biting, urinary/bowel incontinence, or any notable jerky movements. She is currently at baseline and was not confused after the episode. She woke up and was aware of what had happened. Review of Systems - Constitutional Constitutional: As Per HPI - EENT Eyes: absent: As Per HPI, Blind Spots, Blurred Vision, Change in Vision, Decrea sed Night Vision, Diplopia, Discharge, Dry Eye, Exophthalmos, Floaters, Irritation, Itchy Eyes, Loss of Peripheral Vision, Pain, Photophobia, Requires Corrective Lenses, Sees Flashes, Spots in Vision, Tunnel Vision, Other Visual Disturbances, Loss of Vision, Other Ears: absent: As Per HPI, Decreased Hearing, Ear Discharge, Ear Pain, Tinnitus, Abnormal Hearing, Disequilibrium, Dizziness, Other Nose/Mouth/Throat: absent: As Per HPI, Epistaxis, Nasal Congestion, Nasal Discharge, Nasal Obstruction, Nasal Trauma, Nose Pain, Post Nasal Drip, Sinus Pa in, Sinus Pressure, Bleeding Gums, Change in Voice, Dental Pain, Dry Mouth, Dysphagia, Halitosis, Hoarsness, Lip Swelling, Mouth Lesions, Mouth Pain, Odynophagia, Sore Throat, Throat Swelling, Tongue Swelling, Facial Pain, Neck Pain, Neck Mass, Other - Cardiovascular Cardiovascular: absent: As Per HPI, Acrocyanosis, Chest Pain, Chest Pain at Rest, Chest Pain with Activity, Claudication, Diaphoresis, Dyspnea, Dyspnea on Exertion, Edema, Irregular Heart Rhythm, Pain Radiating to Arm/Neck/Jaw, Leg Edema, Leg Ulcers, Lightheadedness, Orthopnea, Palpitations, Paroxysmal Nocturnal Dyspnea, Pedal Edema, Radiating Pain, Rapid Heart Rate, Slow Heart Rate, Syncope, Other - Respiratory Respiratory: absent: As Per HPI, Cough, Dyspnea, Hemoptysis, Dyspnea on Exertion, Wheezing, Snoring, Stridor, Pain on Inspiration, Chest Congestion, Excessive Mucous Production, Change in Mucous Color, Pain with Coughing, Other - Gastrointestinal Gastrointestinal: absent: As Per HPI, Abdominal Pain, Belching, Bloating, Change in Bowel Habits, Change in Stool Character, Coffee Ground Emesis, Constipation, Cramping, Diarrhea, Dyspepsia, Dysphagia, Early Satiety, Excessive Flatus, Fecal Incontinence, Heartburn, Hematemesis, Hematochezia, Loose Stools, Melena, Nausea, Odynophagia, Temesmus, Vomiting, Other - Musculoskeletal Musculoskeletal: absent: As Per HPI, Abnormal Gait, Arthralgias, Atrophy, Back Pain, Deformity, Joint Swelling, Limited Range of Motion, Loss of Height, Muscle Cramps, Muscle Weakness, Myalgias, Neck Pain, Numbness, Radiating Pain into Limb, Stiffness, Tingling, Other - Integumentary Integumentary: absent: As Per HPI, Acne, Alopecia, Bleeding Lesions, Change in Hair, Change in Nails, Change in Pigmentation, Changing Lesions, Dry Skin, Erythema, Furuncle, Hirsutism, Lesions, New Lesions, Non-Healing Lesions, Photosensitivity, Pruritus, Rash, Skin Pain, Skin Ulcer, Sores, Striae, Swelling , Unusual Bruising, Wounds, Jaundice, Other - Neurological Neurological: As Per HPI - Psychiatric Psychiatric: absent: As Per HPI, Abnormal Sleep Pattern, Anhedonia, Anxiety, Auditory Hallucinations, Behavioral Changes, Change in Appetite, Change in Libido, Confusion, Depression, Difficulty Concentrating, Hallucinations, Homicidal Ideation, Hopelessness, Irritability, Memory Loss, Mood Swings, Panic Attacks, Paranoia, Suicidal Ideation, Visual Hallucinations, Tactile Hallucinations, Other - Endocrine Endocrine: absent: As Per HPI, Change in Body Appearance, Change in Libido, Cold Intolorance, Deepening of Voice, Excessive Sweating, Fatigue, Flushing, Heat Intolorance, Increase in Ring/Shoe/Hat Size, Palpitations, Polydipsia, Polyphagia, Polyuria, Other - Hematologic/Lymphatic Hematologic: absent: As Per HPI, Easy Bleeding, Easy Bruising, Lymphadenopathy, Other Past Patient History - Past Medical History & Family History Past Medical History?: Yes - Past Social History Smoking Status: Heavy Smoker > 10 Cigarettes Daily - CARDIAC Hx Cardiac Disorders: No - PULMONARY Hx Respiratory Disorders: Yes - NEUROLOGICAL Hx Neurological Disorder: No - HEENT Hx HEENT Problems: Yes Hx Cataracts: Yes - RENAL Hx Chronic Kidney Disease: Yes Hx Kidney Stones: Yes - ENDOCRINE/METABOLIC Hx Endocrine Disorders: No - HEMATOLOGICAL/ONCOLOGICAL Hx AIDS: No Hx Blood Transfusions: No Hx Human Immunodeficiency Virus (HIV): No - INTEGUMENTARY Hx Dermatological Problems: No - MUSCULOSKELETAL/RHEUMATOLOGICAL Hx Musculoskeletal Disorders: Yes Hx Falls: Yes - GASTROINTESTINAL Hx Bowel Surgery: Yes - GENITOURINARY/GYNECOLOGICAL Hx Genitourinary Disorders: Yes Hx Cervical Cancer: Yes (with Radiation Tx) - PSYCHIATRIC Hx Depression: Yes - SURGICAL HISTORY Hx Appendectomy: Yes Hx Cholecystectomy: Yes - ANESTHESIA Hx Anesthesia: Yes Hx Anesthesia Reactions: No Hx Malignant Hyperthermia: No Meds Allergies/Adverse Reactions: Allergies Allergy/AdvReac Type Severity Reaction Status Date / Time codeine Allergy DIZZINESS Verified 08/03/17 22:27 Penicillins Allergy RASH Verified 08/03/17 22:26 Sulfa (Sulfonamide Allergy ITCHING Verified 08/03/17 22:27 Antibiotics) - Medications Medications: Current Medications Acetaminophen (Tylenol 325mg Tab) 650 mg PO Q6 PRN PRN Reason: Pain, Mild (1-3) Alprazolam (Xanax) 1 mg PO BID PRN PRN Reason: Anxiety Last Admin: 10/15/18 00:31 Dose: 1 mg Enoxaparin Sodium (Lovenox) 40 mg SC DAILY [facility]; Protocol Last Admin: 10/15/18 09:08 Dose: 40 mg Ketorolac Tromethamine (Toradol) 30 mg IVP Q6 PRN PRN Reason: Pain, moderate (4-7) Last Admin: 10/15/18 10:39 Dose: 30 mg Lamotrigine (Lamictal) 200 mg PO DAILY [facility] Last Admin: 10/15/18 09:07 Dose: 200 mg Sertraline HCl (Zoloft) 100 mg PO DAILY [facility] Last Admin: 10/15/18 09:10 Dose: 100 mg Trazodone HCl (Desyrel) 150 mg PO QPM [facility] Physical Exam - Constitutional Appears: Well - Head Exam Additional comments: Left side of face and head has lacerations and bruising. - Eye Exam Eye Exam: EOMI, Normal appearance, PERRL Pupil Exam: NORMAL ACCOMODATION, PERRL - ENT Exam ENT Exam: Mucous Membranes Moist, Normal Exam - Neck Exam Neck exam: Positive for: Normal Inspection - Respiratory Exam Respiratory Exam: Clear to Auscultation Bilateral, NORMAL BREATHING PATTERN - Cardiovascular Exam Cardiovascular Exam: REGULAR RHYTHM, +S1, +S2 - GI/Abdominal Exam GI & Abdominal Exam: Normal Bowel Sounds, Soft. absent: Tenderness - Extremities Exam Extremities exam: Positive for: normal inspection - Back Exam Back exam: NORMAL INSPECTION - Neurological Exam Neurological exam: Alert, CN II-XII Intact, Normal Gait, Oriented x3, Reflexes Normal Additional comments: Bilateral nystagmus noted on exam, more notable to the left on left lateral gaze with fast phase to the right. Right leg was limited by pain, but no focal neurological deficit was noted. - Psychiatric Exam Psychiatric exam: Normal Affect, Normal Mood - Skin Skin Exam: Dry, Intact, Normal Color, Warm Results - Vital Signs Recent Vital Signs: Last Vital Signs Temp 98.3 F 10/15/18 09:00 Pulse 59 L 10/15/18 09:00 Resp 18 10/15/18 09:00 BP 111/67 10/15/18 09:00 Pulse Ox 93 L 10/15/18 09:00 - Labs Result Diagrams: 10/14/18 17:45 10/14/18 17:45 Labs: Laboratory Results - last 24 hr 10/14/18 10/14/18 10/14/18 16:06 17:45 17:45 WBC 6.7 RBC 4.50 Hgb 13.6 Hct 41.2 MCV 91.6 D MCH 30.2 MCHC 33.0 RDW 14.0 Plt Count 156 MPV 8.4 Neut % (Auto) 59.1 Lymph % (Auto) 32.7 [place] % (Auto) 7.2 Eos % (Auto) 0.3 Baso % (Auto) 0.7 Neut # (Auto) 4.0 Lymph # (Auto) 2.2 [place] # (Auto) 0.5 Eos # (Auto) 0.0 Baso # (Auto) 0.0 PT INR APTT Sodium 139 Potassium 4.0 Chloride 101 Carbon Dioxide 28 Anion Gap 14 BUN 13 Creatinine 0.8 Est GFR ( Amer) > 60 Est GFR (Non-Af Amer) > 60 POC Glucose (mg/dL) 108 Random Glucose 105 Calcium 9.2 Phosphorus 4.2 Magnesium 2.2 Total Bilirubin 0.6 AST 21 ALT 19 Alkaline Phosphatase 85 Troponin I < 0.0120 Total Protein 7.4 Albumin 3.9 Globulin 3.5 Albumin/Globulin Ratio 1.1 Alcohol, Quantitative < 10 Blood Type Blood Type Confirm Antibody Screen BBK History Checked 10/14/18 10/14/18 10/15/18 17:45 17:45 10:18 WBC RBC Hgb Hct MCV MCH MCHC RDW Plt Count MPV Neut % (Auto) Lymph % (Auto) [place] % (Auto) Eos % (Auto) Baso % (Auto) Neut # (Auto) Lymph # (Auto) [place] # (Auto) Eos # (Auto) Baso # (Auto) PT 12.3 INR 1.1 APTT 34.3 Sodium Potassium Chloride Carbon Dioxide Anion Gap BUN Creatinine Est GFR ( Amer) Est GFR (Non-Af Amer) POC Glucose (mg/dL) Random Glucose Calcium Phosphorus Magnesium Total Bilirubin AST ALT Alkaline Phosphatase Troponin I Total Protein Albumin Globulin Albumin/Globulin Ratio Alcohol, Quantitative Blood Type A POSITIVE Blood Type Confirm A POSITIVE Antibody Screen Negative BBK History Checked No verified bt Assessment & Plan (1) Syncope Assessment and Plan: Likely vaso-vagal or neuro-cardiogenic in origin. I recommend checking orthostatics, and continue telemetry. Would recommend CTA of the head/neck to rule out VBI. Also consider tilt-table testing. Will obtain EEG to rule out any interictal or seizure like activity. Cardiac work-up is recommended. Thank you for this consultation. Status: Acute
[2018-10-15] MEDS ORDERED: Iodixanol 320 MG/ML 100 ML BOTTLE IV ONE (15:59)
[2018-10-15] MEDS ORDERED: Sodium Chloride 0.9% 50 ML IV ONE (15:59)
--- NOTE | 2018-10-15 16:30 | US ---
Date of service: 10/15/2018 PROCEDURE: Duplex ultrasound of the carotid and vertebral arteries. HISTORY: Syncope COMPARISON: None available. TECHNIQUE: Grayscale and duplex Doppler evaluation of the cervical carotid and vertebral arteries were performed. The common carotid, carotid bifurcations and cervical ICA and proximal ECA were evaluated. The vertebral arteries were evaluated for gross patency and direction. FINDINGS: RIGHT CAROTID ARTERIES: Common Carotid Artery: Maximal flow velocity of 53.7 cm/s. Carotid Bifurcation: Intimal thickening is present Internal Carotid Artery:Heterogeneous plaque formation. Maximal flow velocity of 77.6 cm/s. External Carotid Artery (proximal branches): Maximal flow velocity of 74.6 cm/s. ICA/CCA Ratio: 1.4 LEFT CAROTID ARTERIES: Common Carotid Artery: Maximal flow velocity of 53.2 cm/s. Carotid Bifurcation: Intimal thickening is present Internal Carotid Artery: Intimal thickening is present Maximal flow velocity of 103.2 cm/s. External Carotid Artery (proximal branches): Maximal flow velocity of 65.8 cm/s. ICA/CCA Ratio: 1.9 VERTEBRAL ARTERIES: Right Vertebral Artery: Patent. Antegrade flow. Left Vertebral Artery: Patent. Antegrade flow. OTHER FINDINGS: Atherosclerotic calcification present. IMPRESSION: Right ICA degree of stenosis: Less than 50% Left ICA degree of stenosis: Less than 50% Reference Internal Carotid Artery (ICA) Peak Systolic Velocity (PSV) for above: 1. Less than 50% stenosis less than 125 cm/s peak systolic velocity 2. 50-69% stenosis 125-230cm/s peak systolic velocity 3. Greater than 70% but less than near occlusion greater than 230 cm/s peak systolic velocity
--- NOTE | 2018-10-15 17:05 | CT ---
Date of service: 10/15/2018 PROCEDURE: CT Angiography of the Brain and Neck. HISTORY: Syncope COMPARISON: Carotid ultrasound 10/15/2018. TECHNIQUE: CT angiography of the head and neck was performed following intravenous contrast administration. Coronal and sagittal maximum intensity projection reformatted images were generated. Contrast Dose: Visipaque 320, 90 cc Radiation dose: Total exam DLP = 445.91 mGy-cm. This CT exam was performed using one or more of the following dose reduction techniques: Automated exposure control, adjustment of the mA and/or kV according to patient size, and/or use of iterative reconstruction technique. FINDINGS: INTERNAL CEREBRAL ARTERIES: Note is made of trace calcified atherosclerosis of the right cavernous internal carotid artery segments without significant stenosis. Left cavernous ICA is unremarkable and the skull base, petrous, and supraclinoid segments are bilaterally widely patent. ANTERIOR CEREBRAL ARTERIES: Unremarkable. A1 and A2 segments are widely patent. Smaller distal branches unremarkable, as visualized. MIDDLE CEREBRAL ARTERIES: Unremarkable. M1 and M2 segments are widely patent. Perisylvian branches grossly symmetric. POSTERIOR CIRCULATION: Basilar Artery: Unremarkable. Distal Vertebral Arteries: Balanced vertebrobasilar circulation. Posterior Cerebral Arteries: Unremarkable. Posterior Inferior Cerebellar Arteries: Unremarkable. NECK CTA: Common Carotid arteries: The bilateral common carotid appear widely patent from their origins to their bifurcations with no significant stenosis appreciated. No evidence to suggest common carotid artery dissection. Trace bilateral carotid bulbar atherosclerotic plaques identified minimal calcification. Internal Carotid arteries: No significant stenosis is appreciated throughout the cervical internal carotid artery segments bilaterally and there is no evidence of dissection either. External Carotid arteries: Appear unremarkable bilaterally. Vertebral arteries: The bilateral vertebral arteries appear normal in caliber from their origins to their distal cervical segments. No significant stenosis or definite pattern of dissection. ANEURYSM/ VASCULAR MALFORMATIONS: None. OTHER FINDINGS: None. IMPRESSION: 1. No occlusion or significant stenosis in CT angiography of the head and neck. 2. Trace atherosclerotic plaque minimally calcified at the right cavernous ICA and bilateral carotid bulbs with the lumen remaining widely patent in the segments. 3. Morphological concordance with carotid ultrasound also performed 10/15/2018. Technically, velocity elevations at the bilateral internal carotid arteries are concordant with the current study as well though left-sided velocity below 125 centimeter/second but above 100 centimeters/second may reflect turbulent flow related artifact.
[2018-10-15 20:05] VITALS: RESP 18
--- NOTE | 2018-10-15 20:35 | CARD ---
APPROVED REPORT Date of service: 10/15/2018 EXAM: Two-dimensional and M-mode echocardiogram with Doppler, color Doppler with contrast. Other Information Quality : GoodRhythm : NSR INDICATION Syncope Echo Enhancing Agent Indication: Endocardial border delineation Agent/Amount Used: Definity 2D DIMENSIONS IVSd0.98 (0.7-1.1cm)LVDd5.69 (3.9-5.9cm) LVOT Diameter2.30 (1.8-2.4cm)PWd1.07 (0.7-1.1cm) IVSs1.30 (0.8-1.2cm)LVDs3.68 (2.5-4.0cm) FS (%) 35.4 %PWs1.21 (0.8-1.2cm) Aortic Valve AoV Peak Abyvqzjr522.4cm/sAoV VTI25.6cmAO Peak GR.7mmHg LVOT Peak Zdptlovs29.5cm/sLVOT VTI16.74cmAO Mean GR.4mmHg JENNIFER (VMAX)1.46qx4AKO (VTI)1.28cm2 Mitral Valve MV E Qzsfviwu11.4cm/sMV DECEL WFLM238kxON A Cnslbvve12.5cm/s MV NVD79rwE/A ratio0.8MVA (PHT)3.00cm2 TDI E/Lateral E'0.0E/Medial E'0.0 LEFT VENTRICLE The left ventricle is normal size. There is normal left ventricular wall thickness. The left ventricular systolic function is normal. The estimated ejection fraction is 55-60% No regional wall motion abnormalities noted.. Transmitral Doppler flow pattern is Grade I-abnormal relaxation pattern. No left ventricle thrombus noted on this study. There is no ventricular septal defect visualized. There is no left ventricular aneurysm. There is no mass noted in the left ventricle. RIGHT VENTRICLE The right ventricle is normal size. There is normal right ventricular wall thickness. The right ventricular systolic function is normal. ATRIA The left atrium size is normal. The right atrium size is normal. The interatrial septum is intact with no evidence for an atrial septal defect. AORTIC VALVE The aortic valve is normal in structure. No aortic regurgitation is present. There is no aortic valvular stenosis. There is no aortic valvular vegetation. MITRAL VALVE The mitral valve is normal in structure. There is no evidence of mitral valve prolapse. There is no mitral valve stenosis. There is mild mitral valve regurgitation noted. TRICUSPID VALVE The tricuspid valve is normal in structure. There is no tricuspid valve regurgitation noted. There is no tricuspid valve prolapse or vegetation. There is no tricuspid valve stenosis. PULMONIC VALVE The pulmonary valve is normal in structure. There is no pulmonic valvular regurgitation. There is no pulmonic valvular stenosis. GREAT VESSELS The aortic root is normal in size. The ascending aorta is normal in size. The pulmonary artery is normal. The IVC is normal in size and collapses >50% with inspiration. PERICARDIAL EFFUSION There is no pericardial effusion. There is no pleural effusion. <Conclusion> Definity contrast was used. The estimated ejection fraction is 55-60% Transmitral Doppler flow pattern is Grade I-abnormal relaxation pattern. The left atrium size is normal. There is mild mitral valve regurgitation noted. There is no tricuspid valve regurgitation noted.
[2018-10-16] MEDS: Enoxaparin 40 mg Syringe SC SCH (09:33)
--- NOTE | 2018-10-16 10:58 | CP.PCM.PN ---
Subjective - Date & Time of Evaluation Date of Evaluation: 10/16/18 Time of Evaluation: 10:54 - Subjective Subjective: Neuro Follow-Up Note: Mrs. Mckeon was evaluated this morning at bedside. She denies any further episodes of dizziness or "blacking out." She is eager to be d/c today. Denies h/a, dizziness, visual changes, chest pain, palpitations, sob, cough, abd pain, n/v/d, paresthesias. Objective - Vital Signs/Intake and Output Vital Signs (last 24 hours): Temp Pulse Resp BP Pulse Ox 97.4 F L 58 L 18 154/82 H 94 L 10/16/18 08:03 10/16/18 08:03 10/16/18 08:03 10/16/18 08:03 10/16/18 08:03 - Medications Medications: Current Medications Acetaminophen (Tylenol 325mg Tab) 650 mg PO Q6 PRN PRN Reason: Pain, Mild (1-3) Alprazolam (Xanax) 1 mg PO BID PRN PRN Reason: Anxiety Last Admin: 10/15/18 00:31 Dose: 1 mg Enoxaparin Sodium (Lovenox) 40 mg SC DAILY [facility]; Protocol Last Admin: 10/16/18 09:33 Dose: 40 mg Ketorolac Tromethamine (Toradol) 30 mg IVP Q6 PRN PRN Reason: Pain, moderate (4-7) Last Admin: 10/16/18 03:39 Dose: 30 mg Lamotrigine (Lamictal) 200 mg PO DAILY [facility] Last Admin: 10/16/18 09:33 Dose: 200 mg Nicotine (Nicoderm Cq) 1 patch TD DAILY [facility] Last Admin: 10/16/18 09:33 Dose: 1 patch Sertraline HCl (Zoloft) 100 mg PO DAILY [facility] Last Admin: 10/16/18 09:33 Dose: 100 mg Trazodone HCl (Desyrel) 150 mg PO QPM [facility] Last Admin: 10/15/18 21:45 Dose: 150 mg - Labs Labs: 10/14/18 17:45 10/14/18 17:45 PT 12.3 Seconds (9.8-13.1) 10/14/18 17:45 INR 1.1 10/14/18 17:45 APTT 34.3 Seconds (25.6-37.1) 10/14/18 17:45 - Constitutional Appears: Well, Non-toxic, No Acute Distress - Head Exam Head Exam: ATRAUMATIC, NORMAL INSPECTION, NORMOCEPHALIC Additional comments: healing skin lac to left forehead - Eye Exam Eye Exam: EOMI, Normal appearance, PERRL Pupil Exam: NORMAL ACCOMODATION, PERRL - ENT Exam ENT Exam: Mucous Membranes Moist - Neck Exam Neck Exam: Full ROM, Normal Inspection - Respiratory Exam Respiratory Exam: NORMAL BREATHING PATTERN - Extremities Exam Extremities Exam: Full ROM. absent: Calf Tenderness, Pedal Edema - Neurological Exam Neurological Exam: Alert, Awake, CN II-XII Intact, Normal Gait, Oriented x3, Reflexes Normal Neuro motor strength exam: Left Upper Extremity: 5, Right Upper Extremity: 5, Left Lower Extremity: 5, Right Lower Extremity: 5 Additional comments: Speech clear, fluid No tremors Toes down going - Psychiatric Exam Psychiatric exam: Normal Affect, Normal Mood - Skin Skin Exam: Normal Color Assessment and Plan (1) Syncope Assessment & Plan: Imaging reviewed: -CTA Head and neck (10/15/18): 1. No occlusion or significant stenosis in CT angiography of the head and neck. 2. Trace atherosclerotic plaque minimally calcified at the right cavernous ICA and bilateral carotid bulbs with the lumen remaining widely patent in the segments. 3. Morphological concordance with carotid ultrasound also performed 10/15/2018. Technically, velocity elevations at the bilateral internal carotid arteries are concordant with the current study as well though left-sided velocity below 125 centimeter/second but above 100 centimeters/second may reflect turbulent flow related artifact. -Carotid U/S (10/14/18): Right ICA degree of stenosis: Less than 50%. Left ICA degree of stenosis: Less than 50% -CT Head (09/28/18): Left frontal scalp laceration. No calvarial fracture. No acute intracranial pathology. -ECHO (10/14/18): EF 55-60% -EEG (10/15/18): normal -Recommend cardiology evaluation; tilt table test. These can be done as outpatient. -Pt may be d/c home from neuro standpoint. She is to f/u with her PMD, Dr. Sanchez, within 1-2 weeks. -I discussed f/u recommendations with the pt at length. She verbalized understanding. -Notify neuro team of any acute changes prior to d/c. Reconsult prn. Thank you for allowing us to participate in this pt's care. Carmen Greene DNP, SE[employer]ING M[employer]INE OPERATOR Case discussed with Dr. Pittman Status: Acute
--- NOTE | 2018-10-16 11:41 | PCM.EEG ---
Electroencephalogram Report - Electroencephalogram Report Procedure Date: 10/15/18 Medication: Zoloft, Trazodone, LTG Interpretation: Technical Information: This was a 16 -channel EEG, 1-channel EKG routine EEG performed using an [employer] machine. Electrodes were applied using the 10/20 international placement system. Start; 12;14 End; 13;00 Total 46 min Clinical Information: Syncope During resting wakefulness there was a symmetric posterior dominant rhythm at 8.5-9.5 Hz, 30-50 uV, which was reactive to eye opening and closing. Drowsiness seen at 12;30 was associated with fragmentation of the posterior dominant rhythm and with slow roving eye movements. Hyperventilation was not performed. Photic stimulation was performed and there were no changes on the record. Focal abnormality; none ECG was associated with a normal sinus rhythm. Impression: This is a normal awake and drowsy electroencephalogram.
[2018-10-16 12:04] VITALS: BP 127/85; PULSE 65; TEMP 97.6; O2SAT 93
--- NOTE | 2018-10-16 12:10 | CP.PCM.DIS ---
<Koki Mckeon - Last Filed: 10/16/18 16:19> Provider - Provider Date of Admission: 10/14/18 18:37 Attending physician: Makenna Munson DO Primary care physician: Dr. Sanchez Consults: 10/15/18 12:03 Neurology Consult Routine Comment: Consulting Provider: René Pittman Consulting Physician: René Pittman Reason for Consult: Syncope Time Spent in preparation of Discharge (in minutes): 15 Diagnosis - Discharge Diagnosis (1) Syncope Status: Acute Comment: Full syncope workup completed-pt needs to follow up outpt to get a tilt table test, and see PMD and cardiology outpt. Orthostatic hypotension on vitals. Neuro consulted- Dr. Pittman. CTA head and Neck- WNL. EEG-WNL. EKG no ischemic changes, Troponin x1 negative. Labs wnl: CBC, CMP, Utox. Carotid US BL <50% stenosis. Echo- WNL (2) Knee injury Status: Acute Comment: pain resolving. knee and femer xray- negative for fx or dislocation (3) Depression Status: Chronic Comment: controlled, c/w home meds (4) Bipolar 1 disorder Status: Chronic Comment: controlled, c/w home meds Hospital Course - Lab Results Lab Results: Most Recent Lab Values WBC 6.7 K/uL (4.8-10.8) 10/14/18 17:45 RBC 4.50 Mil/uL (3.80-5.20) 10/14/18 17:45 Hgb 13.6 g/dL (12.0-16.0) 10/14/18 17:45 Hct 41.2 % (34.0-47.0) 10/14/18 17:45 MCV 91.6 fl (81.0-99.0) D 10/14/18 17:45 MCH 30.2 pg (27.0-31.0) 10/14/18 17:45 MCHC 33.0 g/dL (33.0-37.0) 10/14/18 17:45 RDW 14.0 % (11.5-14.5) 10/14/18 17:45 Plt Count 156 K/uL (130-400) 10/14/18 17:45 MPV 8.4 fl (7.2-11.7) 10/14/18 17:45 Neut % (Auto) 59.1 % (50.0-75.0) 10/14/18 17:45 Lymph % (Auto) 32.7 % (20.0-40.0) 10/14/18 17:45 [place] % (Auto) 7.2 % (0.0-10.0) 10/14/18 17:45 Eos % (Auto) 0.3 % (0.0-4.0) 10/14/18 17:45 Baso % (Auto) 0.7 % (0.0-2.0) 10/14/18 17:45 Neut # (Auto) 4.0 K/uL (1.8-7.0) 10/14/18 17:45 Lymph # (Auto) 2.2 K/uL (1.0-4.3) 10/14/18 17:45 [place] # (Auto) 0.5 K/uL (0.0-0.8) 10/14/18 17:45 Eos # (Auto) 0.0 K/uL (0.0-0.7) 10/14/18 17:45 Baso # (Auto) 0.0 K/uL (0.0-0.2) 10/14/18 17:45 PT 12.3 Seconds (9.8-13.1) 10/14/18 17:45 INR 1.1 10/14/18 17:45 APTT 34.3 Seconds (25.6-37.1) 10/14/18 17:45 Sodium 139 mmol/l (132-148) 10/14/18 17:45 Potassium 4.0 MMOL/L (3.6-5.0) 10/14/18 17:45 Chloride 101 mmol/L (98-107) 10/14/18 17:45 Carbon Dioxide 28 mmol/L (22-30) 10/14/18 17:45 Anion Gap 14 (10-20) 10/14/18 17:45 BUN 13 mg/dl (7-17) 10/14/18 17:45 Creatinine 0.8 mg/dl (0.7-1.2) 10/14/18 17:45 Est GFR ( Amer) > 60 10/14/18 17:45 Est GFR (Non-Af Amer) > 60 10/14/18 17:45 POC Glucose (mg/dL) 108 mg/dL (65-110) 10/14/18 16:06 Random Glucose 105 mg/dL (65-105) 10/14/18 17:45 Calcium 9.2 mg/dL (8.4-10.2) 10/14/18 17:45 Phosphorus 4.2 mg/dl (2.5-4.5) 10/14/18 17:45 Magnesium 2.2 MG/DL (1.6-2.3) 10/14/18 17:45 Total Bilirubin 0.6 mg/dl (0.2-1.3) 10/14/18 17:45 AST 21 U/L (14-36) 10/14/18 17:45 ALT 19 U/L (9-52) 10/14/18 17:45 Alkaline Phosphatase 85 U/L (38-126) 10/14/18 17:45 Troponin I < 0.0120 ng/mL (0.00-0.120) 10/14/18 17:45 Total Protein 7.4 G/DL (6.3-8.2) 10/14/18 17:45 Albumin 3.9 g/dL (3.5-5.0) 10/14/18 17:45 Globulin 3.5 gm/dL (2.2-3.9) 10/14/18 17:45 Albumin/Globulin Ratio 1.1 (1.0-2.1) 10/14/18 17:45 Alcohol, Quantitative < 10 mg/dl (0-10) 10/14/18 17:45 Blood Type A POSITIVE 10/14/18 17:45 Blood Type Confirm A POSITIVE 10/15/18 10:18 Antibody Screen Negative 10/14/18 17:45 BBK History Checked No verified bt 10/14/18 17:45 - Hospital Course Hospital Course: Pt is a 63 yo female with hx of Anxiety, Depression, and Chronic smoker, admitted to ED on 10/14/18 due to Syncope with subsequent R knee injury. Pt had sudden LOC walking down the stairs and on the last step, she blacked out, she woke up on the floor and had right knee pain. Denied any prodomal symptoms (lightheadedness/dizziness,cp, sob, flushed, palpitations, n/v). When she woke up she was alert and oriented, denied confusion, denied headache or any other joint pain, denied urinary incontinence or lip biting. She had a similar episode 2 weeks ago that occurred as she was walking into the path train for which she struck her head and suffered a head laceration. she visited the ED and Head & Maxillofacial CT at that time were negative for any acute fractures. Denied any recent illness, new medication, motor or sensory deficits, gait instability, visual or auditory deficits, or new headaches. Full syncope workup completed, Orthostatic hypotension on vitals, Neuro consulted- Dr. Pittman, CTA head and Neck- WNL, EEG-WNL, EKG no ischemic changes, Troponin x1 negative. Labs wnl: CBC, CMP, Utox alc <10. Carotid US BL <50% stenosis. Echo WNL. Today denies fevers, chills, headache, blurry vision, weakness, numbness/tingling, facial droop, chest pain, SOB, N/V/D/C, or dysuria. Pt is hemodynamically stable pt needs to follow up outpt to get a tilt table test, and see PMD Dr. Sanchez and cardiology outpt. - Date & Time of H&P Date of H&P: 10/14/18 Time of H&P: 19:22 Discharge Exam - Head Exam Head Exam: ATRAUMATIC, NORMAL INSPECTION, NORMOCEPHALIC Additional comments: Laceration on L forehead, healed - Eye Exam Eye Exam: EOMI, Nystagmus (B/L), PERRL - ENT Exam ENT Exam: Mucous Membranes Moist - Respiratory Exam Respiratory Exam: Clear to PA & Lateral, NORMAL BREATHING PATTERN. absent: Rales, Rhonchi, Wheezes - Cardiovascular Exam Cardiovascular Exam: RRR, +S1, +S2 - GI/Abdominal Exam GI & Abdominal Exam: Normal Bowel Sounds, Soft. absent: Tenderness - Extremities Exam Extremities exam: full ROM, normal inspection - Neurological Exam Neurological exam: Alert, CN II-XII Intact, Oriented x3 Additional comments: Strength and sensation 5/5 B/L UE and LE Discharge Plan - Follow Up Plan Condition: STABLE Disposition: HOME/ ROUTINE Instructions: Syncope (Fainting) (DC), Syncope (DC), Syncope (GEN) Additional Instructions: Obtain outpatient tilt table test and Follow up with PMnAy Sanchez in 1 week and cardiology as outpatient Referrals: Carlos Sanchez MD [Staff Provider] - René Pittman MD [Medical Doctor] - <Makenna Munson - Last Filed: 10/16/18 17:32> Provider - Provider Date of Admission: 10/14/18 18:37 Attending physician: Makenna Munson DO Consults: 10/15/18 12:03 Neurology Consult Routine Comment: Consulting Provider: René Pittman Consulting Physician: René Pittman Reason for Consult: Syncope Hospital Course - Lab Results Lab Results: Most Recent Lab Values WBC 6.7 K/uL (4.8-10.8) 10/14/18 17:45 RBC 4.50 Mil/uL (3.80-5.20) 10/14/18 17:45 Hgb 13.6 g/dL (12.0-16.0) 10/14/18 17:45 Hct 41.2 % (34.0-47.0) 10/14/18 17:45 MCV 91.6 fl (81.0-99.0) D 10/14/18 17:45 MCH 30.2 pg (27.0-31.0) 10/14/18 17:45 MCHC 33.0 g/dL (33.0-37.0) 10/14/18 17:45 RDW 14.0 % (11.5-14.5) 10/14/18 17:45 Plt Count 156 K/uL (130-400) 10/14/18 17:45 MPV 8.4 fl (7.2-11.7) 10/14/18 17:45 Neut % (Auto) 59.1 % (50.0-75.0) 10/14/18 17:45 Lymph % (Auto) 32.7 % (20.0-40.0) 10/14/18 17:45 Dup[place] % (Auto) 7.2 % (0.0-10.0) 10/14/18 17:45 Eos % (Auto) 0.3 % (0.0-4.0) 10/14/18 17:45 Baso % (Auto) 0.7 % (0.0-2.0) 10/14/18 17:45 Neut # (Auto) 4.0 K/uL (1.8-7.0) 10/14/18 17:45 Lymph # (Auto) 2.2 K/uL (1.0-4.3) 10/14/18 17:45 [place] # (Auto) 0.5 K/uL (0.0-0.8) 10/14/18 17:45 Eos # (Auto) 0.0 K/uL (0.0-0.7) 10/14/18 17:45 Baso # (Auto) 0.0 K/uL (0.0-0.2) 10/14/18 17:45 PT 12.3 Seconds (9.8-13.1) 10/14/18 17:45 INR 1.1 10/14/18 17:45 APTT 34.3 Seconds (25.6-37.1) 10/14/18 17:45 Sodium 139 mmol/l (132-148) 10/14/18 17:45 Potassium 4.0 MMOL/L (3.6-5.0) 10/14/18 17:45 Chloride 101 mmol/L (98-107) 10/14/18 17:45 Carbon Dioxide 28 mmol/L (22-30) 10/14/18 17:45 Anion Gap 14 (10-20) 10/14/18 17:45 BUN 13 mg/dl (7-17) 10/14/18 17:45 Creatinine 0.8 mg/dl (0.7-1.2) 10/14/18 17:45 Est GFR ( Amer) > 60 10/14/18 17:45 Est GFR (Non-Af Amer) > 60 10/14/18 17:45 POC Glucose (mg/dL) 108 mg/dL (65-110) 10/14/18 16:06 Random Glucose 105 mg/dL (65-105) 10/14/18 17:45 Calcium 9.2 mg/dL (8.4-10.2) 10/14/18 17:45 Phosphorus 4.2 mg/dl (2.5-4.5) 10/14/18 17:45 Magnesium 2.2 MG/DL (1.6-2.3) 10/14/18 17:45 Total Bilirubin 0.6 mg/dl (0.2-1.3) 10/14/18 17:45 AST 21 U/L (14-36) 10/14/18 17:45 ALT 19 U/L (9-52) 10/14/18 17:45 Alkaline Phosphatase 85 U/L (38-126) 10/14/18 17:45 Troponin I < 0.0120 ng/mL (0.00-0.120) 10/14/18 17:45 Total Protein 7.4 G/DL (6.3-8.2) 10/14/18 17:45 Albumin 3.9 g/dL (3.5-5.0) 10/14/18 17:45 Globulin 3.5 gm/dL (2.2-3.9) 10/14/18 17:45 Albumin/Globulin Ratio 1.1 (1.0-2.1) 10/14/18 17:45 Alcohol, Quantitative < 10 mg/dl (0-10) 10/14/18 17:45 Blood Type A POSITIVE 10/14/18 17:45 Blood Type Confirm A POSITIVE 10/15/18 10:18 Antibody Screen Negative 10/14/18 17:45 BBK History Checked No verified bt 10/14/18 17:45 Attending/Attestation - Attestation I have personally seen and examined this patient.: Yes I have fully participated in the care of the patient.: Yes I have reviewed all pertinent clinical information, including history, physical exam and plan: Yes Notes (Text): 10/16/18 17:32 Agree with findings and plan as above.
== END 2018-10-16 13:39 | disposition home or self-care (01) ==
LOC: H.ER 16:00 → H.ERHOLD 18:37 → H.TEL 23:07
PROVIDERS: ADMIT Student in an Organized Health Care Education/Training Program; ATTEND Student in an Organized Health Care Education/Training Program
DX: I95.1 Orthostatic hypotension (principal); F31.9 Bipolar disorder, unspecified; F17.210 Nicotine dependence, cigarettes, uncomplicated; M25.561 Pain in right knee; F41.9 Anxiety disorder, unspecified; K21.9 Gastro-esophageal reflux disease without esophagitis; Z85.41 Personal history of malignant neoplasm of cervix uteri; N18.9 Chronic kidney disease, unspecified; E11.22 Type 2 diabetes mellitus with diabetic chronic kidney disease; Z88.6 Allergy status to analgesic agent; Z88.0 Allergy status to penicillin; Z88.2 Allergy status to sulfonamides
CPT/HCPCS: 36415; 70496; 70498; 71045; 73552; 73560; 80053; 82948; 83735; 84100; 84484; 85025; 85610; 85730; 86850; 86900; 93005; 93306; 93880; 96374; 99285; G0378; G0480; J1650; J1885; Q9967